=== PATIENT | male | born 1995 | race Two or more races ===

== ENCOUNTER 2019-02-26 14:28 | Emergency (ER) | payer OTHER ==
[2019-02-26 14:39] VITALS: BP 120/59; PULSE 64; TEMP 98.3; BMI 23.9
[2019-02-26] MEDS ORDERED: ACETAMINOPHEN 325 MG TABLET (FP) PO ONE (15:51)
[2019-02-26] MEDS ORDERED: DIPHTH,PERTUSS(ACELL),TET 0.5 ML DISP.SYRIN IM ONE ×2 (15:52→15:55)
[2019-02-26] MEDS ORDERED: ACETAMINOPHEN 325 MG TABLET (FP) ONE (15:55)
--- NOTE | 2019-02-26 15:58 | PDOC ---
History of Present Illness - General Chief Complaint: Injury Stated Complaint: INJURY Time Seen by Provider: 02/26/19 15:01 History Source: Patient Exam Limitations: No Limitations (R middle finger crush injury at work 1:15) Past History - Travel Traveled outside of the country in the last 30 days: No - Past Medical History Allergies/Adverse Reactions: Allergies Allergy/AdvReac Type Severity Reaction Status Date / Time No Known Allergies Allergy Verified 02/26/19 14:35 COPD: No - Psycho Social/Smoking Cessation Hx Smoking History: Current every day smoker Have you smoked in the past 12 months: Yes Number of Cigarettes Smoked Daily: 20 Information on smoking cessation initiated: Yes Hx Alcohol Use: No Drug/Substance Use Hx: No Review of Systems - Review of Systems Constitutional: No: Chills, Fever Musculoskeletal: Yes: Joint Pain (R middle finger injury) *Physical Exam - Vital Signs Last Vital Signs Temp Pulse Resp BP Pulse Ox 98.3 F 64 18 120/59 L 99 02/26/19 14:36 02/26/19 14:36 02/26/19 14:36 02/26/19 14:36 02/26/19 14:36 - Physical Exam General Appearance: Yes: Nourished Extremity: positive: Normal Range of Motion, Tender (R middle finger: + hematoma in nail noted, nail bed intact. 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 He reports he was lifting a shaving dish when the lid closed accidentally on his finger. 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 On examination there is evidence of subungual hematoma mild bleeding noted nail is intact he does have full range of motion in the finger Tetanus updated Tylenol for pain and x-ray 02/26/19 15:59 02/26/19 18:57 Discharge - Discharge Information Problems reviewed: Yes Clinical Impression/Diagnosis: Hematoma, subungual, finger Qualifiers: Encounter type: initial encounter Qualified Code(s): S60.10XA - Contusion of unspecified finger with damage to nail, initial encounter Condition: Stable Disposition: HOME - Admission No - Additional Discharge Information Prescription Drug Monitoring Program (I-STOP) results: I-STOP not reviewed - Follow up/Referral Referrals: Tito Yao MD [Staff Physician] - - Patient Discharge Instructions Patient Printed Discharge Instructions: DI for Subungual Hematoma Additional Instructions: Your preliminary x-ray was negative for acute fracture or dislocation Take Tylenol for pain He can follow-up with orthopedics if the pain persist Keep fingers splint on for the next few days Return to the emergency room if worsening symptoms occurs - Post Discharge Activity Work/Back to School Note: Back to Work
== END 2019-02-26 16:40 | disposition home or self-care (01) ==
LOC: JERFT 14:28
PROC: 3E0234Z Introduction of Serum, Toxoid and Vaccine into Muscle, Percutaneous Approach (ICD-10-PCS; principal; 2019-02-26)
PROC: 2W3JX1Z Immobilization of Right Finger using Splint (ICD-10-PCS; 2019-02-26)
DX: S60.131A Contusion of right middle finger with damage to nail, initial encounter (principal); W23.0XXA Caught, crushed, jammed, or pinched between moving objects, initial encounter; Y93.89 Activity, other specified; Y92.59 Other trade areas as the place of occurrence of the external cause; Y99.0 Civilian activity done for income or pay; F17.210 Nicotine dependence, cigarettes, uncomplicated
CPT/HCPCS: 73140-TC-RT-FY; 90715; 99282-25